=== PATIENT | male | born 1950 | race Caucasian/White ===

== ENCOUNTER 2024-08-11 23:34 | Inpatient (IN) | payer OTHER, MEDICARE ==
[~2024-08-11] VITALS: Ht 180.3 cm; Wt 78.8 kg
[2024-08-12] VITALS (25 sets, daily range): BP systolic 86–149; BP diastolic 63–107
[2024-08-12] MEDS ORDERED: FentaNYL Citrate 50 MCG/ML 2 ML Injection IV ONE (00:20)
[2024-08-12] MEDS ORDERED: FentaNYL Citrate 50 MCG/ML 2 ML Injection IV PRN ×2 (01:25→01:55)
[2024-08-12] MEDS ORDERED: Ondansetron HCl 2 MG / ML 2ML Vial IV PRN (01:55)
[2024-08-12] MEDS ORDERED: NS 1,000 ML IV ONE (01:55)
[2024-08-12 02:22] LABS: BASOPHILS ABSOLUTE AUTO 0.01 K/mm3 (0.00-0.23); BASOPHILS PERCENT AUTO 0 % (0-2); EOSINOPHILS ABSOLUTE AUTO 0.01 K/mm3 (0.00-0.68); EOSINOPHILS PERCENT AUTO 0 % (0-6); Hematocrit 34.6 % (37.0-53.0); Hemoglobin 11.4 g/dL (13.5-17.5); IMMATURE GRAN ABSOLUTE AUTO 0.06 K/mm3 (0.00-0.10); IMMATURE GRAN PERCENT AUTO 1 % (0-1); LYMPHOCYTES ABSOLUTE AUTO 0.54 K/mm3 (0.84-5.20); LYMPHOCYTES PERCENT AUTO 4 % (21-46); MONOCYTES ABSOLUTE AUTO 0.98 K/mm3 (0.16-1.47); MONOCYTES PERCENT AUTO 8 % (4-13); Mean Corpuscular HGB Conc 32.9 g/dL (31.5-36.5); Mean Corpuscular Volume 91 fL (80-100); Mean Platelet Volume 8.7 fL (9.1-12.4); NEUTROPHILS ABSOLUTE AUTO 10.58 K/mm3 (1.96-9.15); NEUTROPHILS PERCENT AUTO 87 % (41-73); Platelet Count 236 K/mm3 (150-400); RDW Coefficient Variation 14.7 % (11.7-14.2); RDW Standard Deviation 49.7 fL (35.1-46.3); White Blood Cell Count 12.18 K/mm3 (4.00-11.30)
[2024-08-12 02:50] LABS: International Normalized Ratio 0.94; Prothrombin Time Results 10.4 Sec (9.7-11.5)
[2024-08-12 03:59] LABS: Bilirubin, Total 0.5 mg/dL (0.1-1.0); Bun/Creatinine Ratio 26.2 (12.0-20.0); Calcium, Blood 9.1 mg/dL (8.5-10.1); Creatinine, Blood 0.65 mg/dL (0.60-1.20); Potassium, Blood 4.1 mmol/L (3.5-5.5)
--- NOTE | 2024-08-12 04:38 | NUR ---
SHIFT SUMMARY: PT ARRIVED TO FLOOR AT 0245. AOX3, BUT NEEDS INTERMITTENT REORIENTATION TO SITUATION.PT COMPLAINS OF SEVERE PAIN, FENTANYL GIVEN PER eMAR. WHILE IN PAIN, PT HAD ABNORMAL CARDIAC RHYTHM AND MD WAS INFORMED AND EKG PERFORMED. PT ALSO CURRENTLY ON 4L NC, HE USES 2-3L AT BASELINE. PUREWICK IS IN PLACE D/T FRACTURE AND INCONTINENCE. CALL LIGHT IS WITHIN REACH. BED ALARM IS ON. BED IS LOW AND LOCKED. AWAITING ORTHO CONSULT.
[2024-08-12] MEDS ORDERED: HYDROmorphone HCl/Pf 1MG SYR IV PRN ×2 (07:50→10:30)
[2024-08-12] MEDS ORDERED: OxyCODONE 5 mg/Acetamin 325 mg TABLET PO PRN (07:50)
[2024-08-12] MEDS ORDERED: Acetaminophen 325 MG TABLET PO PRN (07:50)
[2024-08-12] MEDS ORDERED: Metoprolol Tartrate 1 MG/ML 5 ML VIAL IV ONE (10:00)
[2024-08-12] MEDS ORDERED: Naloxone HCl 0.4MG / ML 1ML Vial IV PRN (10:30)
[2024-08-12] MEDS ORDERED: Docusate Sodium/Senna 1 Tab PO PRN (10:30)
[2024-08-12] MEDS ORDERED: OxyCODONE HCL 10 MG TABCR PO SCH (13:25)
[2024-08-12] MEDS ORDERED: Chlorhexidine Mouth Care 15 ML UDC MT SCH (13:25)
[2024-08-12] MEDS ORDERED: Acetaminophen 500 MG Tab PO SCH (13:25)
[2024-08-12] MEDS ORDERED: Lactated Ringer's 1,000 ML IV SCH (13:25)
[2024-08-12] MEDS ORDERED: CeFAZolin Sodium 2,000 MG in NS 100 ML IV SCH (13:25)
[2024-08-12] MEDS ORDERED: Tranexamic Acid 100 ML IV SCH (13:27)
--- NOTE | 2024-08-12 13:30 | NUR ---
INTO SDS VIA BED. PT REPORTS 09/10 "NECK AND LEFT HIP PAIN." HISTORY AND ALLERGIES REVIEWED. LUNGS DIMINISHED TO LEFT WITH FEW FINE CRACKLES TO LEFT BASE. SATS >90% ON RA. NPO STATUS CONFIRMED.
--- NOTE | 2024-08-12 13:37 | NUR ---
RECEIVED RECORDS FROM [facility]. SENDING DOWN TO DAY SURGERY NOW SO THEY CAN REVIEW.
[2024-08-12] MEDS ORDERED: propofoL 20 ML IV ONE (13:39)
[2024-08-12] MEDS ORDERED: HYDROmorphone HCl/Pf 1MG SYR ONE ×2 (13:49→16:34)
[2024-08-12] MEDS ORDERED: Rocuronium Bromide 10 MG/ML 5ML Injection IV ONE (13:53)
[2024-08-12] MEDS ORDERED: FentaNYL Citrate 50 MCG/ML 2 ML Injection ONE (13:55)
[2024-08-12] MEDS ORDERED: Bupivacaine 0.5% HCl 5 MG/ML 30MLVIAL ONE (14:25)
[2024-08-12] MEDS ORDERED: Dexamethasone Sod Phos 10 MG/ML 1ML VIAL ONE (14:30)
[2024-08-12] MEDS ORDERED: Ondansetron HCl 2 MG / ML 2ML Vial ONE ×2 (14:30→16:16)
[2024-08-12] MEDS ORDERED: Phenylephrine HCl 100 MCG/ML-NS 10MLSYR (1MG/10ML) ONE ×2 (14:37→14:46)
[2024-08-12] MEDS ORDERED: ePHEDrine Sulfate 50 MG/ML 1ML Injection ONE (14:47)
[2024-08-12] MEDS ORDERED: Ketorolac Tromethamine 30mg Vial ONE (15:19)
[2024-08-12] MEDS ORDERED: Glycopyrrolate 0.2 MG/ML 5ML VIAL ONE (15:19)
[2024-08-12] MEDS ORDERED: Neostigmine Methylsulfate 5MG/5ML SYR ONE (15:19)
--- NOTE | 2024-08-12 15:36 | NUR ---
TRANSFER TO SURGICAL ROOM 216. REPORT GIVEN TO ALBINO DILLON. BELONGINGS GATHERED AND TAKEN TO NEW ROOM. PT WAS ASKING ABOUT HIS WALLET THIS AM BUT WAS NOT IN ROOM, I DID CALL DOWN TO ER TO SEE IF THEY COULD LOOK FOR IT AND THEY DID NOT FIND IT EITHER. PATIENT IS FORGETFUL, MAYBE NEVER BROUGHT W[facility] FROM [facility]. TELE BOX TAKEN DOWN TO 216. PT STILL IN OR.
--- NOTE | 2024-08-12 17:05 | NUR ---
post-op ARRIVAL TO 216 @ 1645, ON 3L NC,SATS 94% VSS. TELE IN PLACE, SR IN THE 80S. PATIENT REPORTS PAIN IN HIS NECK, LARGE LEFT SIDED NECK MASS NOTED. PATIENT REPORTS MASS HAS BEEN THERE FOR SEVERAL MONTHS. DENIES PAIN IN THE LEFT HIP. TWO FOAM DRESSINGS TO LEFT HIP C/D/I. CURRENTLY SIPPING CLEAR LIQ. AOX3-4. CALL LIGHT IS IN REACH, BED ALARM FOR SAFETY.
--- NOTE | 2024-08-12 17:46 | NUR ---
SHIFT SUMMARY NO ACUTE EVENTS, VSS, O2 DOWN TO 1L SATS 93%. TOLERATING PO INTAKE. DENIES PAIN. CALL LIGHT IN REACH.
[2024-08-12] MEDS ORDERED: Metoprolol Tartrate 25 MG Tab PO SCH (21:00)
[2024-08-13] MEDS ORDERED: Albuterol 2.5 MG/3 ML VIAL INH PRN (01:20)
[2024-08-13] MEDS ORDERED: Acetylcysteine 200 MG/ML 4ML Vial INH SCH (01:20)
[2024-08-13 03:04] VITALS: BP 103/67
--- NOTE | 2024-08-13 06:18 | NUR ---
SHIFT SUMMARY PT S/P LEFT HIP REPAIR. PT HAS RESTED OFF AND ON T/O THE NIGHT. PAIN MANAGED PER EMAR. PT HAS HAD SOME URINARY RENENTION, THIS SHIFT. PT STATED HE FELT LIKE HE NEEDED TO URINATE BUT WAS UNABLE. PT STRAIGHT CATH PER PROTOCOL BY SUPERVISOR TESTING. 550 CC OF URINE OBTAINED. PT HAS PMH OF COPD, PT HAS SOME CONGESTION, AND REPORTS DIFFICULTY COUGHING UP SECREATIONS. HOSPITALIST NOTIFIED AND NEB TREATMENTS ORDERED. PT A/OX4, A LITTLE BIT FORGETFUL. SURGICAL SITE WNL. POST OP VITALS STABLE. BED IN LOWEST POSITON, CALL LIGHT WITHIN REACH.
--- NOTE | 2024-08-13 06:25 | NUR ---
RETENTION PT STRAIGHT CATH ONCE THIS SHIFT FOR RETENTION, PER PROTOCOL AND AN ADEQUATE AMOUNT IF URINE OBTAINED. PT HAS NOT BEEN ABLE TO VOID ON THIS OWN. DR. MADERA WAS MADE AWARE THAT PT HAS NOT BEEN ABLE TO VOID ON HIS OWN POST OP AND WAS STRAIGHT CATH. HE STATES TO BLADDER SCAN AND STRAIGHT CATH AGAIN IF GREATER THAN 400. PT BLADDER SCAN ONLY REVEALED 176 AT THIS TIME.
[2024-08-13 07:14] VITALS: BP 106/68
--- NOTE | 2024-08-13 07:51 | NUR ---
ASSUMPTION OF CARE: THIS RN ASSUMED CARE OF PATIENT. AWAKE DURING SHIFT CHANGE REPORT, REQUESTING PAIN AND ANXIETY MEDICATIONS. SOME MILD NAUSEA; ADMINISTERED PRN OXY AND ZOFRAN. LYING ON BACK IN BED c HOB ELEVATED. BREATHING SLIGHTLY LABORED SECONDARY TO PAIN. BED IN LOWEST POSITION. CALL LIGHT WITHIN REACH. ACUTE NEEDS MET.
[2024-08-13 09:17] LABS: Hematocrit 30.5 % (37.0-53.0); Hemoglobin 10.1 g/dL (13.5-17.5); Mean Corpuscular HGB 30.1 pg (26.0-34.0); Mean Corpuscular HGB Conc 33.1 g/dL (31.5-36.5); Mean Corpuscular Volume 91 fL (80-100); Platelet Count 208 K/mm3 (150-400); RDW Coefficient Variation 15.2 % (11.7-14.2); RDW Standard Deviation 50.7 fL (35.1-46.3); Red Blood Cell Count 3.36 M/mm3 (4.30-5.90)
[2024-08-13 09:39] LABS: Bun/Creatinine Ratio 23.8 (12.0-20.0); Calcium, Blood 8.3 mg/dL (8.5-10.1); Creatinine, Blood 0.67 mg/dL (0.60-1.20); Magnesium, Blood 1.8 mg/dL (1.6-2.4); Potassium, Blood 3.9 mmol/L (3.5-5.5)
[2024-08-13] MEDS ORDERED: Polyethylene Glycol 3350 17 gm PO PRN (10:25)
[2024-08-13] MEDS ORDERED: OxyCODONE 5 mg/Acetamin 325 mg TABLET PO SCH ×2 (12:00→18:00)
--- NOTE | 2024-08-13 12:25 | NUR ---
CALL TO DR BUCKNER: T.O. FOR STRAIGHT CATH AND BOWEL MANAGEMENT MEDS.
[2024-08-13] MEDS ORDERED: LORazepam 2 MG/ML 1ML Injection IV PRN (12:30)
[2024-08-13 12:49] VITALS: BP 105/70
[2024-08-13 14:57] VITALS: BP 102/70
--- NOTE | 2024-08-13 16:15 | NUR ---
PER DR BUCKNER: OKAY TO INSERT BRIGHT IF BLADDER SCAN >400 AGAIN. OKAY TO CHANGE ATIVAN FROM IV TO PO DUE TO SHORTAGE.
--- NOTE | 2024-08-13 19:24 | NUR ---
END OF SHIFT SUMMARY: A&Ox4, THOUGH FORGETFUL. PLEASANT AND COOPERATIVE WITH CARE. DOES EXCESSIVELY UTILIZE CALL LIGHT; FORGETFUL THIS AFTERNOON AND BEGAN YELLING FOR HELP FROM HIS ROOM AND ACCUSED STAFF OF IGNORING HIM, THOUGH HIS LIGHT WAS PROMPTLY ANSWERED EVERY TIME, WAS HIS VERBAL REQUESTS FOR ASSISTANCE. WORKED c PT TODAY; WBAT BUT NOT STEADY ON FEET AND WAS ULTIMATELY UNABLE TO MOBILIZE. STRAIGHT CATHED FOR URINARY RETENTION; VERBAL ORDER FROM DR. BUCKNER FOR BRIGHT PLACEMENT IF RETENTION >400 OCCURS AGAIN. PROGRESSIVELY EXPERIENCING DIFFICULTY SWALLOWING MEDICATIONS TODAY SECONDARY TO MASS AGAINST LEFT SIDE OF THROAT. VERY PAINFUL AND PREFERS TO HAVE IV DILAUDID TO PO PERCOCET D/T DYSPHAGIA. WAS NOT NOTED TO CHOKE AT ANY POINT, BUT DID SEEM TO BE TRYING TO INITIATE EXPECTORATION. NO BOWEL MOVEMENT YET; BOWEL TONES ACTIVE x4 QUADS. TELE SINUS c PVCs. [facility]. BED IN LOWEST POSITION, CALL LIGHT WITHIN REACH, ALL NEEDS MET. REPORT TO ONCOMING NURSE.
[2024-08-13] MEDS ORDERED: LORazepam 1 MG Tab PO PRN (19:35)
[2024-08-13 19:48] VITALS: BP 116/70
[2024-08-13 21:34] LABS: SARS-Cov-2 (COVID-19) PCR, MMC NEGATIVE (NEGATIVE)
[2024-08-13 23:38] VITALS: BP 130/88
[2024-08-14] MEDS ORDERED: HYDROmorphone HCl/Pf 1MG SYR IV ONE (01:25)
[2024-08-14] MEDS ORDERED: Bisacodyl 10 MG Supp PR PRN (01:30)
[2024-08-14] MEDS ORDERED: Water 500ML With 1 PKT Castile Soap Enema PR PRN (01:35)
[2024-08-14] MEDS ORDERED: HYDROmorphone HCl/Pf 1MG SYR ONE (02:02)
[2024-08-14] MEDS ORDERED: Metoprolol Tartrate 1 MG/ML 5 ML VIAL IV ONE ×2 (02:40→06:45)
[2024-08-14 02:41] VITALS: BP 115/81
[2024-08-14 04:02] VITALS: BP 115/82
[2024-08-14 04:50] LABS: Hematocrit 33.9 % (37.0-53.0); Mean Corpuscular HGB 29.6 pg (26.0-34.0); Mean Corpuscular HGB Conc 32.4 g/dL (31.5-36.5); Mean Corpuscular Volume 91 fL (80-100); Mean Platelet Volume 9.6 fL (9.1-12.4); Platelet Count 241 K/mm3 (150-400); RDW Coefficient Variation 15.3 % (11.7-14.2); RDW Standard Deviation 51.2 fL (35.1-46.3); Red Blood Cell Count 3.71 M/mm3 (4.30-5.90); White Blood Cell Count 9.36 K/mm3 (4.00-11.30)
--- NOTE | 2024-08-14 05:26 | NUR ---
NOC SUMMARY- PT REPORTS PAIN FREQUENTLY. PT PAIN IS MOSTLY IN ABD DUE TO CONSTIPATION. PT TREATED WITH MIRALAX, SUPPOSITORY AND SOAP SUDS ENEMA WITH NO BM. PT REPORTS SOME FLATUS. ALSO PT ANXIETY TX W/ ATIVAN WITH SOME RELIEF. PAIN MANAGED WITH DILAUDID. PT HAD BRIGHT PLACED FOR RETENTION, DRAINING TO GRAVITY. PT REPOSITIONED FREQUENTLY. PT HAD HEART RATE ISSUES. PT RATE WAS SUSTAINING IN 130'S. DR CARREON CALLED AND ORDERED IV LOPRESSOR. PT RATE IN 100'S NOW. PT CURRENTLY RESTING. PT DOES CALL OUT AT TIMES FOR HELP. PT UNABLE TO USE CALL LIGHT.
[2024-08-14 05:30] LABS: Bun/Creatinine Ratio 32.5 (12.0-20.0); Calcium, Blood 8.3 mg/dL (8.5-10.1); Creatinine, Blood 0.65 mg/dL (0.60-1.20); Magnesium, Blood 1.8 mg/dL (1.6-2.4); Potassium, Blood 4.2 mmol/L (3.5-5.5)
[2024-08-14 06:03] VITALS: BP 111/89
[2024-08-14] MEDS ORDERED: Metoprolol Tartrate 25 MG Tab PO ONE (06:10)
[2024-08-14 06:55] VITALS: BP 147/100
[2024-08-14 07:17] VITALS: BP 109/82
[2024-08-14 07:18] VITALS: BP 121/92
--- NOTE | 2024-08-14 08:00 | NUR ---
PT DECLINING.DURING NIGHT PT RECEIVED EXTRA DOSING METOPROLOL FOR HEART RATE HIGH 150'S. SEE ALL VS.PT WAS PLANNED TO POSSIBLY TRANSFER TODAY FOR COMFORT CARE AT [place] PER HIS BASELINE STATUS PRIOR TO TRANSFER HERE FOR HIP SURGERY.PT WAS ORDERED FOR BOWEL CARE BEFORE HE TRANSFERS.PT RECEIVED SSE AND DULCOLAX SUPPOS LAST NIGHT WITH NO RESULT.PT HAD C/O ABD PAIN AND EXTRA DOSE DILAUDID WAS GIVEN.CURRENTLY PTS RESP RATE 45,HAVING ABD PAIN,MOTTLING TO LOWER EXT.PT VERB TO HIS STAFF NURSES THAT HE WANTS TO . I CALLED DR BUCKNER AND ADVISED OF ABOVE.SHE STATES SHE WILL COME TO SEE PT.
--- NOTE | 2024-08-14 08:08 | NUR ---
PLAN OF CARE: CHEST XR AND CT ABDOMEN ORDERED. IMAGING IN ROOM FOR XR, PT STATES "I DONT WANT THIS." PT TELLS THIS RN THAT HE WANTS TO . PT ANXIOUS. HR IN THE 130'S. PT COMPLAINS OF ABDOMINAL PAIN. MOTTLED COLD LEGS. PT EXTREMELY DIAPHORETIC ON UPPER BODY. PT ON 4L O2 AND STATES "I CANT BREATHE." RR 45. SUCTIONED MOUTH PT HAS AUDIBLE WETNESS IN THROAT AND WEAK COUGH. DR BUCKNER IN TO SEE PATIENT. THIS RN ADVOCATED FOR PT COMFORT.
[2024-08-14] MEDS ORDERED: Metoprolol Tartrate 1 MG/ML 5 ML VIAL IV PRN (08:15)
[2024-08-14] MEDS ORDERED: Morphine Sulfate 20 MG/1ML 1 ML Oral Syringe PO PRN (08:35)
[2024-08-14] MEDS ORDERED: Furosemide 10 MG/ML 4ML Vial IV ONE (09:00)
[2024-08-14] MEDS ORDERED: Enoxaparin 100 MG/ML 1ML SYR SC SCH (09:00)
[2024-08-14] MEDS ORDERED: Tamsulosin HCl 0.4 MG Cap PO SCH (09:00)
[2024-08-14] MEDS ORDERED: Docusate Sodium/Senna 1 Tab PO SCH (09:00)
[2024-08-14] MEDS ORDERED: Morphine Sulfate 20 MG/1ML 1 ML Oral Syringe SL PRN (10:50)
[2024-08-14] MEDS ORDERED: Scopolamine Hydrobromide Patch TOP PRN (10:50)
[2024-08-14] MEDS ORDERED: Atropine Sulfate 1% Opth Soln 2ML BTL SL PRN (10:50)
--- NOTE | 2024-08-14 10:50 | NUR ---
COMFORT CARE: PT HAS BEEN TRANSITIONED TO COMFORT CARE. PT HAS CALMED WITH ATIVAN AND DILAUDID. PT CONT TO HAVE RESPIRATORY RATE IN THE 40'S. TELE DC'D. CONT BIOX REMOVED. PT CLEANED HE IS VERY DIAPHORETIC. REPOSITIONED. BRIGHT DRAINING DARK URINE. LASIX X1 GIVEN ORDERED. REQUESTED SPIRITUAL CARE VISIT.
--- NOTE | 2024-08-14 13:20 | NUR ---
"Spiritual Care | Comfort Care Pt. is on comfort care and presents as if he is transitioning. The Pt. awoke when this tanker service attendant was at bedside. The Pt. did not communicate with words but displayed evidence of awareness and peace. Pastoral encouragement is given. Prayed with pt. pt. returned to somnolence during the prayer. Spiritual care will remain available to the Pt."
--- NOTE | 2024-08-14 16:43 | NUR ---
DISCUSSED CASE WITH CARE COORDINATION. PATIENT HAS HAD A CHANE IN CONDITION. PLAN WAS FOR HIM TO DISCHARGE TO HOSPICE. BEDSIDE RN AND CARE COORDINATION EXPRESSED CONCERNS ABOUT TRANSPORTING PATIENT. ASSESSED PT. DISCUSSED CASE WITH BSN. ROUNDED ON PT. INCREASED RESPIRATIONS. RECOMENDED ATIVAN AND ROSIEINOL.
--- NOTE | 2024-08-14 19:17 | NUR ---
PT CHANGED TO COMFORT CARE THIS SHIFT. PALLIATIVE CARE BY TO PUT IN ORDERS. SPIRITUAL CARE IN TO VISIT PATIENT. FAMILY UPDATED PER EM PHYSICIAN AND RN. PT HAS BEEN SLEEPING T/O MOST OF SHIFT. WAKES TO VERBAL STIMULI. MEDICATED PRN FOR PAIN WITH ROXINOL. NO NAUSEA. POOR SWALLOWING. SIPS PO FLUIDS ONLY. 200CC TEA COLORED URINE. LEGS COLD AND MOTTLED. NO STOOLS. ABDOMEN TENDER. O2 2L PER PT REQUEST BEACUSE HE IS DRY. MOUTH CARE GIVEN NEEDED. LEG AND ARM MASSAGES GIVEN PER PT REQUEST. SUCTIONING PRN SECRETIONS. MAY DC TO [facility].
--- NOTE | 2024-08-14 20:16 | NUR ---
FAMILY INFO- SISTER KELIN # [phone]
--- NOTE | 2024-08-15 13:14 | NUR ---
pt being repositioned/oral care q 2 hrs. presently does not wake to verbal/ responds to tactile stimuli only. will continue to monitor.
--- NOTE | 2024-08-15 16:23 | NUR ---
shift summary pt being repositioned q2. oral care q2. being medicated with roxanol per comfort care orders. respirations recently slowed from 36/min to 28-32. pt responsive only to tactile stimuli. will continue to monitor.
--- NOTE | 2024-08-15 17:12 | NUR ---
ASSUMED CARE OF PATIENT AT 1635, WHILE ROUNDING ON PATIENT WITH PREVIOUS RN. PT HAD ONE AGONAL BREATH AND HEART BEAT COULD NO LONGER BE HEARD. NOTIFIED UNIVERSITY LIBRARIAN WHO LISTENED TO HEART SOUNDS WELL. PHYSICIAN, FASHION COORDINATOR AND FAMILY NOTIFIED. POST MORTEM CARE PERFORMED. IV REMOVED AND CATHETER REMOVED. ICE PLACED OVER EYES PER DONOR LINE.
== END 2024-08-15 21:30 | DRG 482 ==
LOC: ER 23:34 → SURS 08-12 01:39 → MEDS 08-12 01:39 → SURS 08-12 14:50
PROVIDERS: Emergency Medicine; Hospitalist; Orthopaedic Surgery; ADMIT Internal Medicine
PROC: 0QS706Z Reposition Left Upper Femur with Intramedullary Internal Fixation Device, Open Approach (ICD-10-PCS; principal; 2024-08-12 14:00)
PROC: 3E03329 Introduction of Other Anti-infective into Peripheral Vein, Percutaneous Approach (ICD-10-PCS; 2024-08-13)
PROC: 0T9B70Z Drainage of Bladder with Drainage Device, Via Natural or Artificial Opening (ICD-10-PCS; 2024-08-13)
DX: S72.142A Displaced intertrochanteric fracture of left femur, initial encounter for closed fracture (principal); I48.91 Unspecified atrial fibrillation; W01.0XXA Fall on same level from slipping, tripping and stumbling without subsequent striking against object, initial encounter; J44.9 Chronic obstructive pulmonary disease, unspecified; Z66 Do not resuscitate; M19.90 Unspecified osteoarthritis, unspecified site; Z51.5 Encounter for palliative care; N18.30 Chronic kidney disease, stage 3 unspecified; F32.A Depression, unspecified; G89.29 Other chronic pain; M10.9 Gout, unspecified; I12.9 Hypertensive chronic kidney disease with stage 1 through stage 4 chronic kidney disease, or unspecified chronic kidney disease; M48.061 Spinal stenosis, lumbar region without neurogenic claudication; E11.22 Type 2 diabetes mellitus with diabetic chronic kidney disease; C76.0 Malignant neoplasm of head, face and neck; Z99.81 Dependence on supplemental oxygen
CPT/HCPCS: 36415; 51701; 71045; 73502; 80048; 80053; 83735; 83880; 85025; 85027; 85610; 93005; 93010; 94640; 94664; 94760; 94762; 96374; 97110; 97162; 97530; 99285-25; A6590; A9270; C1713; C1769; J1100; J1171; J1885; J1938; J2060; J2371; J2405; J2704; J2710; J3010; J7030; J7120; U0002